=== PATIENT | female | born 1980 | race Caucasian/White ===

== ENCOUNTER 2018-12-03 17:51 | Emergency (ER) | payer OTHER ==
[2018-12-03 18:39] VITALS: BMI 35.1
[2018-12-03 21:23] LABS: URINE APPEARANCE Clear; URINE BILIRUBIN Negative (NEGATIVE); URINE COLOR Yellow; URINE GLUCOSE (UA) Negative (NEGATIVE); URINE KETONE Negative (NEGATIVE); URINE LEUK ESTERASE Negative (NEGATIVE); URINE NITRITE Negative (NEGATIVE); URINE PROTEIN Negative (NEGATIVE); URINE UROBILINOGEN 0.2 mg/dL (0.2-1.0)
--- NOTE | 2018-12-03 21:57 | PDOC ---
*Physical Exam - Vital Signs Last Vital Signs Temp Pulse Resp BP Pulse Ox 98.9 F 80 18 112/76 100 12/03/18 18:29 12/03/18 18:29 12/03/18 18:29 12/03/18 18:29 12/03/18 18:29 ED Treatment Course - LABORATORY CBC & Chemistry Diagram: 12/03/18 22:40 12/03/18 22:40 - ADDITIONAL ORDERS Additional order review: Laboratory Results 12/03/18 21:10 Urine Color Yellow Urine Appearance Clear Urine pH 7.0 Ur Specific [place] 1.010 Urine Protein Negative Urine Glucose (UA) Negative Urine Ketones Negative Urine Blood Trace-intact Urine Nitrite Negative Urine Bilirubin Negative Urine Urobilinogen 0.2 Ur Leukocyte Esterase Negative Medical Decision Making - Medical Decision Making 12/03/18 21:54 Patient seen by the advanced practice provider under my direct supervision. Ancillary testing reviewed as necessary. I agree with plan as outlined by the advanced practice provider. *DC/Admit/Observation/Transfer Diagnosis at time of Disposition: Abdominal pain - Referrals - Patient Instructions - Post Discharge Activity
--- NOTE | 2018-12-03 22:07 | PDOC ---
History of Present Illness - General Chief Complaint: Pain, Acute Stated Complaint: SHORP PAIN ON RIGHT SIDE Time Seen by Provider: 12/03/18 21:42 History Source: Patient Exam Limitations: No Limitations - History of Present Illness Travel History: No Initial Comments: 12/03/18 22:02 HISTORY OF PRESENT ILLNESS: 38-year-old woman past medical history ovarian cyst presents emergency department for evaluation of right lower quadrant pain over the past 2-3 days. Patient reports the pain presents sharp and suddenly with a rating of 7/10. Patient reports the pain is constant for "a few minutes" and then spontaneously resolves. Patient has not taken anything for the pain. Patient does report having loose brown stools over the past 2 days. She denies rectal bleeding. She endorses thin white vaginal discharge. She reports having unprotected sex with her spouse of many years. She denies any recent travel, change in diet or change in medications. Patient denies any contact with persons having similar symptoms. No recent travel or sick contacts. PAST MEDICAL HISTORY: see HPI SURGICAL HISTORY: Denies ALLERGIES: No known drug allergies REVIEW OF SYSTEMS General/Constitutional: Denies fever or chills. Denies weakness, weight change. HEENT: Denies change in vision. Denies ear pain or discharge. Denies sore throat. Cardiovascular: Denies chest pain or shortness of breath. Respiratory: Denies cough, wheezing, or hemoptysis. Gastrointestinal: see HPI Genitourinary: Denies dysuria, frequency, or change in urination. Musculoskeletal: Denies joint or muscle swelling or pain. Denies neck or back pain. Skin and breasts: Denies rash or easy bruising. Neurologic: Denies headache, vertigo, loss of consciousness, or loss of sensation. Psychiatric: Denies depression or anxiety. Endocrine: Denies increased thirst. Denies abnormal weight change. Hematologic/Lymphatic: Denies anemia, easy bleeding, or history of blood clots. Allergic/Immunologic: Denies hives or skin allergy. Denies latex allergy. PHYSICAL EXAM General Appearance: Well-appearing, appropriately dressed. No apparent distress , no intoxication. Respiratory/Chest: Lungs CTAB. No shortness of breath, chest tenderness, respiratory distress, accessory muscle use. No crackles, rales, rhonchi, stridor , wheezing, dullness Cardiovascular: RRR. S1, S2. No JVD, murmur, bradycardia, tachycardia. Gastrointestinal/Abdominal: Normal bowel sounds. Abdomen soft, non-distended. Right lower quadrant tenderness noted. No rebound tenderness present. No organomegaly. No pulsatile masses, guarding or hernia present. Past History - Past Medical History Allergies/Adverse Reactions: Allergies Allergy/AdvReac Type Severity Reaction Status Date / Time No Known Allergies Allergy Verified 12/03/18 18:32 Home Medications: Ambulatory Orders Lidocaine 5% Patch [Lidoderm Patch -] 1 patch TP DAILY PRN #30 patch 12/23/17 Methocarbamol [Robaxin -] 500 mg PO TID PRN #30 tablet 12/23/17 Naproxen Sodium 220 mg PO BID PRN #30 tablet 12/23/17 Lidocaine 5% Patch [Lidoderm -] 1 patch TP DAILY #30 patch 12/24/17 Methocarbamol [Robaxin -] 500 mg PO TID PRN #30 tablet 12/24/17 Naproxen Sodium [All Day Pain Relief] 220 mg PO BID PRN #30 tablet 12/24/17 metroNIDAZOLE 0.75% GEL [Metrogel 0.75% Gel -] 1 applic TP HS 5 Days #1 tube 10/23 COPD: No - Suicide/Smoking/Psychosocial Hx Smoking History: Never smoked Have you smoked in the past 12 months: No Information on smoking cessation initiated: No Hx Alcohol Use: No Drug/Substance Use Hx: No Substance Use Type: None *Physical Exam - Vital Signs Last Vital Signs Temp Pulse Resp BP Pulse Ox 98.9 F 80 18 112/76 100 12/03/18 18:29 12/03/18 18:29 12/03/18 18:29 12/03/18 18:29 12/03/18 18:29 - Physical Exam Female Pelvic Exam: positive: normal external exam, cervical os closed, normal adnexa, normal size ovaries, discharge (thick white normal smelling vaginal discharge). negative: CMT, adnexal tenderness, vaginal bleeding ED Treatment Course - LABORATORY CBC & Chemistry Diagram: 12/03/18 22:40 12/03/18 22:40 - ADDITIONAL ORDERS Additional order review: Laboratory Results 12/03/18 21:10 Urine Color Yellow Urine Appearance Clear Urine pH 7.0 Ur Specific [place] 1.010 Urine Protein Negative Urine Glucose (UA) Negative Urine Ketones Negative Urine Blood Trace-intact Urine Nitrite Negative Urine Bilirubin Negative Urine Urobilinogen 0.2 Ur Leukocyte Esterase Negative - RADIOLOGY Radiology Studies Ordered: Category Date Time Status TRANSVAGINAL ULTRASOUND US [US] Stat Ultrasound 12/03/18 21:51 Ordered Medical Decision Making - Medical Decision Making 12/03/18 22:09 A/P: 38-year-old woman with right lower quadrant pain for 2-3 days with loose brown stools Differential diagnosis includes but not limited to: UTI, appendicitis, perforation, obstruction, ectopic , ovarian cysts, STI, colitis Labs Urine Transvaginal ultrasound Reassess 12/03/18 23:38 Ultrasound as read by Dr. James: Essentially normal pelvic sonogram with no evidence of ovarian torsion or acute pathology. CT abdomen and pelvis with IV contrast 12/04/18 01:17 CAT scan as read by imaging semiconductor engineer: No bowel obstruction, colitis, diverticulitis or free air. Normal appendix. Unremarkable pancreas, kidneys and gallbladder. 1.5 cm dominant follicle right ovary. Small physiologic free fluid in cul-de- sac. Asymmetrical prominent right periuterine vessels. Multiple small soft tissue densities bilateral buttocks, possibly granulomas. Large right inguinal lymph node and borderline-enlarged left iliac chain node, possibly inflammatory Patient reports she has had frequent episodes of bacterial vaginosis in the past which presented as urinary tract symptoms. Patient reports she rarely has malodorous discharge. As patient has prominence right inguinal lymph node on palpation. I will treat for bacterial vaginosis. Patient is in agreement with this plan and was satisfied with the care received today. *DC/Admit/Observation/Transfer Diagnosis at time of Disposition: Bacterial vaginosis - Discharge Dispostion Disposition: HOME Condition at time of disposition: Stable Decision to Admit order: No - Prescriptions Prescriptions: metroNIDAZOLE 0.75% GEL [Metrogel 0.75% Gel -] 1 applic TP HS 5 Days #1 tube - Referrals - Patient Instructions Additional Instructions: Your vaginal cultures will take approximately 3 days to result. You will receive a phone call if the prescription provided will not work. Use MetroGel every night for the next 5 days. Return to emergency department for any new or worsening symptoms. Thank you very much for choosing us to provide your emergent health care needs. - Post Discharge Activity
[2018-12-03] MEDS ORDERED: SODIUM CHLORIDE 1,000 ML IV STA (22:11)
[2018-12-03 22:14] VITALS: BP 110/77; PULSE 65; TEMP 98.4
[2018-12-03 23:02] LABS: BASO % 0.8 % (0-2.0); EOS % 0.9 % (0-4.5); HEMATOCRIT 36.2 % (32.4-45.2); LYMPH % 39.5 % (8-40); MCH 29.4 pg (25.7-33.7); MCHC 33.2 g/dl (32.0-36.0); MEAN CELL VOLUME 88.3 fl (80-96); MEAN PLT VOLUME 9.1 fl (7.5-11.1); MONO % 7.7 % (3.8-10.2); NEUT % 51.1 % (42.8-82.8); PLATELET COUNT 222 K/MM3 (134-434); RDW 13.6 % (11.6-15.6); WHITE BLOOD COUNT 7.6 K/mm3 (4.0-10.0)
[2018-12-03 23:28] LABS: ALBUMIN 3.5 g/dl (3.4-5.0); ALK PHOS 77 U/L (45-117); ANION GAP 4 MMOL/L (8-16); BILIRUBIN,TOTAL 0.2 mg/dL (0.2-1); BLOOD UREA NITROGEN 11 mg/dL (7-18); CALCIUM 8.7 mg/dL (8.5-10.1); CHLORIDE 105 mmol/L (98-107); CO2 28 mmol/L (21-32); CREATININE 0.6 mg/dL (0.55-1.3); GLUCOSE,RANDOM 86 mg/dL (74-106); POTASSIUM 3.9 mmol/L (3.5-5.1); SGOT/AST 28 U/L (15-37); SGPT/ALT 25 U/L (13-61); SODIUM 137 mmol/L (136-145)
== END 2018-12-04 02:35 | disposition home or self-care (01) ==
LOC: JER 17:51
PROC: 3E0337Z Introduction of Electrolytic and Water Balance Substance into Peripheral Vein, Percutaneous Approach (ICD-10-PCS; principal; 2018-12-03)
DX: N76.0 Acute vaginitis (principal); B96.89 Other specified bacterial agents as the cause of diseases classified elsewhere
CPT/HCPCS: 36415; 74177-TC; 76830-TC; 80053; 81003; 84703; 85025; 87070; 87205; 96360; 99283-25; J7030